=== PATIENT | female | born 1980 | race Caucasian/White ===

== ENCOUNTER 2023-12-23 18:47 | Outpatient (REF) | payer OTHER, SELFPAY ==
[2023-12-30 11:10] LABS: Age Gdln ACOG Testing Note (.); HPV Aptima Negative (Negative); IGP, Aptima HPV, rfx 16/18,45 Note (.)
== END 2023-12-23 18:48 | disposition home or self-care (01) ==
LOC: LAB 18:47
PROVIDERS: PCP Physician Assistant; Visit Provider Physician Assistant
DX: Z01.419 Encounter for gynecological examination (general) (routine) without abnormal findings (principal)
CPT/HCPCS: 87624; 88175

== ENCOUNTER 2024-12-27 15:14 | Outpatient (REF) | payer OTHER, SELFPAY ==
--- OUTSIDE RECORDS SUMMARY | 2024-12-27 15:20 | XMS_ITS | CCD ---
Author Organization [facility] Care Team Providers Care Television News Producer Name Role Phone Leo Navarrete MD Primary Care Provider [phone] LAYO, DR SORIA Attending Unavailable LIZZETTE, DR BAILEY Consulting Unavailable LIZZETTE, DR BAILEY Primary Care Unavailable LAYO, DR SORIA Admitting Unavailable LAYO, DR SORIA Attending Unavailable LAYO, DR SORIA Consulting Unavailable LIZZETTE, DR BAILEY Primary Care Unavailable LAYO, DR SORIA Admitting Unavailable LAYO, DR SORIA Attending Unavailable LAYO, DR SORIA Consulting Unavailable LIZZETTE, DR BAILEY Primary Care Unavailable LAYO, DR SORIA Admitting Unavailable AGUBOSIM, BILL Consulting Unavailable JEREMYKOOSEI ROMAN Consulting Unavailable LAYO, DR SORIA Admitting Unavailable LIZZETTE, DR BAILEY Primary Care Unavailable LAYO, DR SORIA Attending Unavailable LAYO, DR SORIA Attending Unavailable LAYO, DR SORIA Consulting Unavailable LIZZETTE, DR BAILEY Primary Care Unavailable LAYO, DR SOIRA Admitting Unavailable LIZZETTE, DR BAILEY Attending Unavailable LIZZETTE, DR BAILEY Consulting Unavailable LIZZETTE, DR BAILEY Primary Care Unavailable LIZZETTE, DR BAILEY Admitting Unavailable LAYO, DR SORIA Consulting Unavailable LAYO, DR SORIA Admitting Unavailable LIZZETTE, DR BAILEY Primary Care Unavailable LAYO, DR SORIA Attending Unavailable ZIEBER, DR LIVAN Baeza Consulting Unavailable Leo Navarrete MD Primary Care Provider Leo Navarrete MD Primary Care Provider Leo Navarrete MD Primary Care Provider Leo Navarrete MD Primary Care Provider Leo Navarrete MD Primary Care Provider LEO NAVARRETE Primary Care Unavailable LEO NAVARRETE Primary Care Unavailable FIDELINA COSBY Attending Unavailable FIDELINA COSBY Attending Unavailable FIDELINA COSBY Attending Unavailable PAZ LO Attending Unavailable FIDELINA COSBY Attending Unavailable Leo Navarrete MD Primary Care Provider [phone] Medications Current Medications Medication Drug Class(es) Dates Sig (Normalized) Sig (Original) acetaminophen 325 mg / HYDROcodone bitartrate 5 mg oral tablet (9 sources) Opioid Agonist take 2 tablets by mouth every six hours as needed HYDROcodone-acetami nophen (NORCO) 5-325 MG per tablet Take 2 tablets by mouth every 6 hours as needed. Active acetaminophen 325 mg / oxyCODONE hydrochloride 5 mg oral tablet (9 sources) Opioid Agonist take 1 tablet by mouth every four hours as needed oxyCODONE-acetamino phen (PERCOCET) 5-325 MG per tablet Take 1 tablet by mouth every 4 hours as needed. Active azithromycin 250 mg oral tablet (6 sources) Macrolide Antimicrobial Start: 10-18-2023 End: 12-27-2024 azithromycin (Zithromax) 250 MG tablet 10/18/2023 12/27/2024 Discontinued 24 hr buPROPion hydrochloride 300 mg extended release oral tablet (6 sources) Aminoketone Start: 08-10-2023 buPROPion XL (Wellbutrin XL) 300 MG 24 hr tablet 1 (one) time each day at the same time 08/10/2023 Active cephalexin 500 mg oral capsule (1 source) Cephalosporin Antibacterial Start: 09-27-2024 End: 10-07-2024 take 1 capsule by mouth three times daily cephALEXin (KEFLEX) 500 MG capsule Take 1 capsule by mouth 3 times daily for 10 days 30 capsule 09/27/2024 10/07/2024 Active citalopram 40 mg oral tablet (11 sources) Serotonin Reuptake Inhibitor take 1 tablet by mouth in the morning citalopram (CeleXA) 40 MG tablet Take 40 mg by mouth in the morning. Active dexamethasone 6 mg oral tablet (6 sources) Corticosteroid Start: 10-18-2023 dexAMETHasone (Decadron) 6 MG tablet 10/18/2023 Active diphenhydrAMINE hydrochloride 25 mg oral tablet (8 sources) Histamine-1 Receptor Antagonist take 1 tablet by mouth every six hours as needed diphenhydrAMINE (BENADRYL) 25 MG tablet Take 25 mg by mouth every 6 hours as needed for Itching Active Estradiol / Progesterone (2 sources) Progesterone, Estrogen Start: 12-27-2024 End: 03-27-2025 Estradiol-Progester one (Bijuva) 0.5-100 MG capsule Indications: Night sweat , Difficulty sleeping , Irregular periods/menstrual cycles , Other fatigue , Major depressive disorder with current active episode, unspecified depression episode severity, unspecified whether recurrent Take 0.5 mg by mouth Daily 90 capsule 3 12/27/2024 03/27/2025 Active hydrOXYzine hydrochloride 50 mg oral tablet (6 sources) Antihistamine Start: 08-10-2023 End: 12-27-2024 take 2 tablets by mouth every eight hours as needed hydrOXYzine HCl (Atarax) 50 MG tablet 2 tablet as needed Orally every 8 hours PRN 08/10/2023 12/27/2024 Discontinued lactulose 667 mg/ml oral solution (6 sources) Osmotic Laxative Start: 08-10-2023 End: 12-27-2024 lactulose 20 gram/30 mL oral solution 15 - 30 mL as needed Orally Once a day - up to bid for 30 days 08/10/2023 12/27/2024 Discontinued linaclotide 0.145 mg oral capsule (6 sources) Guanylate Cyclase-C Agonist Start: 12-01-2023 End: 12-27-2024 Linzess 145 MCG capsule 1 (one) time each day at the same time 12/01/2023 12/27/2024 Discontinued minocycline 50 mg oral capsule (9 sources) Tetracycline-class Drug take 1 capsule by mouth twice daily minocycline (MINOCIN;DYNACIN) 50 MG capsule Take 50 mg by mouth 2 times daily. Active naltrexone hydrochloride 50 mg oral tablet (6 sources) Opioid Antagonist Start: 08-10-2023 End: 12-27-2024 naltrexone (Depade) 50 MG tablet 1 (one) time each day at the same time 08/10/2023 12/27/2024 Discontinued PARoxetine hydrochloride 10 mg oral tablet (9 sources) Serotonin Reuptake Inhibitor take 1 tablet by mouth once daily in the morning PARoxetine (PAXIL) 10 MG tablet Take 10 mg by mouth every morning. Active spironolactone 100 mg oral tablet (10 sources) Aldosterone Antagonist Start: 12-01-2022 take 1 tablet by mouth in the morning, then take 1 tablet by mouth once daily spironolactone (Aldactone) 100 MG tablet Indications: Acne vulgaris Take 1 tablet (100 mg) by mouth in the morning. Take 1 tablet daily. 30 tablet 11 12/01/2022 Active Start: 09-21-2022 End: 12-23-2023 take 1 tablet by mouth in the morning, then take 1 tablet by mouth once daily spironolactone (Aldactone) 50 MG tablet Indications: Acne vulgaris Take 1 tablet (50 mg) by mouth in the morning. Tae 1 capsule daily. 30 tablet 11 09/21/2022 12/23/2023 Discontinued Completed/Discontinued Medications Medication Drug Class(es) Dates Sig (Normalized) Sig (Original) bacitracin 0.5 unt/mg / neomycin 0.0035 mg/mg / polymyxin b 10 unt/mg topical ointment (1 source) Aminoglycoside Antibacterial, Polymyxin-class Antibacterial Start: End: apply 1 dose topically once Topical, ONCE, On Wed09/27/24 at 1815, For 1 dose onabotulinumtoxina 100 unt injection (4 sources) Acetylcholine Release Inhibitor Start: End: onabotulinumtoxinA (Botox) injection 26 Units Start: 12-26-2024 End: 12-26-2024 26 Units, Injection, Once, O n 12/26/24 at 1000, For 1 dose, Charging context for this clinic-administered medication: Fee-Editable/Self Pay Start: 08-24-2024 End: 08-24-2024 onabotulinumtoxinA (Botox) i njection 26 Units Start: 08-24-2024 End: 08-24-2024 inject 26 [IU] by intramuscular injection once 26 Units, Intramuscular, Once, On Wed08/24/24 at 1330, For 1 dose, Charging context for this clinic-administered medication: Fee-Editable/Self Pay phenazopyridine hydrochlorid e 200 mg delayed release oral tablet (4 sources) Start: 09-04-2022 End: 12-23-2023 phenazopyridine (Pyridium) 2 00 MG tablet every 8 (eight) hours. 09/04/2022 12/23/2023 Discontinued Problems Active Problems Problem Classification Problem Date Documented Date Episodic/Chronic Contraceptive and procreative management (1 source) Tubal ligation status; Translations: [TUBAL LIGATION STATUS] Onset: 08-18-2021 Episodic Endometriosis (6 sources) Endometriosis (clinical); Translations: [Endometriosis, unspecified] Onset: 08-30-2012 02-04-2024 Chronic Immunizations and screening for infectious disease (2 sources) Encounter for screening for human papillomavirus (HPV); Translations: [Positive measurement finding] Onset: 08-28-2021 Episodic Malaise and fatigue (7 sources) Fatigue; Translations: [Other fatigue] Onset: 03-13-2024 03-13-2024 Episodic Menstrual disorders (13 sources) Excessive and frequent menstruation with regular cycle; Translations: [Excessive and frequent menstruation with irregular cycle] Onset: 08-06-2021 Chronic Mood disorders (2 sources) Major depressive disorder; Translations: [Major depressive disorder, single episode, unspecified] 12-27-2024 Chronic Open wounds of extremities (2 sources) Laceration of left wrist; Translations: [Laceration without foreign body of left wrist, subsequent encounter] Onset: 09-27-2024 09-27-2024 Episodic Other screening for suspected conditions (not mental disorders or infectious disease) (9 sources) Patient encounter status; Translations: [Encounter for screening mammogram for malignant neoplasm of breast] Onset: 08-25-2021 Episodic Other skin disorders (5 sources) Wrinkled face; Translations: [Other specified disorders of the skin and subcutaneous tissue] 02-04-2024 Episodic Other skin disorders (2 sources) Night sweats; Translations: [Generalized hyperhidrosis] 12-27-2024 Episodic Ovarian cyst (1 source) Unspecified ovarian cyst, left side; Translations: [UNSPECIFIED OVARIAN CYST LEFT SIDE] Onset: 07-04-2021 Episodic Residual codes; unclassified (5 sources) Insomnia; Translations: [Other insomnia] Onset: 03-13-2024 03-13-2024 Chronic Residual codes; unclassified (2 sources) Difficulty sleeping ; Translations: [Sleep disorder, unspecified] 12-27-2024 Episodic Screening and history of mental health and substance abuse codes (1 source) Personal history of nicotine dependence; Translations: [PERSONAL HISTORY OF NICOTINE DEPEND] Onset: 08-18-2021 Episodic Unclassified (3 sources) CONTACT W/AND (SUSP) EXPOS COVID-19; Translations: [CONTACT W/AND (SUSP) EXPOS COVID-19] Onset: 04-08-2021 Viral infection (1 source) COVID-19; Translations: [COVID-19] Onset: 04-08-2021 Past or Other Problems Problem Classification Problem Date Documented Da te Episodic/Chronic Acute bronchitis (1 source) Acute bronchitis, unspecified; Translations: [ACUTE BRONCHITIS UNSPECIFIED] Onset: 04-08-2021 Episodic Other gastrointestinal disorders (6 sources) Constipation; Translations: [Constipation, unspecified] Onset: 02-04-2024 02-04-2024 Episodic Other skin disorders (6 sources) Acne vulgaris; Translations: [Acne vulgaris] Onset: 02-04-2024 02-04-2024 Episodic Unclassified (1 source) CONTACT W/AND (SUSP) EXPOS COVID-19; Translations: [CONTACT W/AND (SUSP) EXPOS COVID-19] Onset: 04-01-2021 Results Test Name Value Interpretation Reference Range Facility IGP,APTIMA HPV,AGE GDLNon AGE GDLN ACOG TESTING Note . [facility] Comment on above: TESTS RESULT FLAG U NITS REF RANGE LAB Clinician Provided Cytology Information Source.............Cervix;Endocervix No. of containers..01 ThinPrep Vial Age Algo ACOG Mirtha... 30-65 01 FLAG LEGEND: L-Low Normal,H-High Normal,LL-Alert Low,HH-Alert High <-Panic Low,>-Panic High,A-Abnormal,AA-Critical Abnormal Performed at: 01 =[address] [id number] Sammi Rodríguez MD, HPV APTIMA Negative Negative [facility] Comment on above: This nucleic acid am plification test detects fourteen high- risk HPV types (16,18,31,33,35,39,45,51,52,56,58,59,66,68) without differentiation. Performed at: =[address] [id number] Needle Grader: Sammi Rodríguez MD, Phone: [phone] Performed at: [address] [id number] Needle Grader: Sammi Rodríguez MD, Phone: [phone] IGP, APTIMA HPV, RFX 16/18,45 Note . [facility] Comment on above: TESTS RESULT FLAG UN ITS REF RANGE LAB DIAGNOSIS: 02 NEGATIVE FOR INTRAEPITHELIAL LESION OR MALIGNANCY. THIS SPECIMEN WAS RESCREENED PART OF OUR AUTOMOBILE TECHNICIAN PROGRAM. Specimen adequacy: 02 Satisfactory for evaluation. No endocervical component is identified. Performed by: 02 Teo Naylor Pad Extraction Tender (ASCP) QC reviewed by: 02 Nikki Logan Pad Extraction Tender . 02 Note: Note 02 The Pap smear is a screening test designed to aid in the detection of premalignant and malignant conditions of the uterine cervix. It is not a diagnostic procedure and should not be used as the sole means of detecting cervical cancer. Both false-positive and false-negative reports do occur. Test Methodology: Note 02 This liquid based ThinPrep(R) pap test was screened with the use of an image guided system. HPV Genotype Reflex Note 02 Criteria not met, HPV Genotype not performed. FLAG LEGEND: L-Low Normal,H-High Normal,LL-Alert Low,HH-Alert High <-Panic Low,>-Panic High,A-Abnormal,AA-Critical Abnormal Performed at: 02 [facility] [address] [id number] Sammi Rodríguez MD, BRUSH-SPATULA CERVIX ENDOCERVIX [facility] Healthcar e COVID-19, Rapidon 03-21-2023 SARS-CoV-2 (COVID-19) RdRp gene ESTELA+probe Ql (Resp) Not detected Not Detected [facility] Comment on above: Rapid NAAT: The specimen is NEGATIVE for SARS-CoV-2, the novel coronavirus associated with COVID-19. The ID NOW COVID-19 assay is designed to detect the virus that causes COVID-19 in patients with signs and symptoms of infection who are suspected of COVID-19. An individual without symptoms of COVID-19 and who is not shedding SARS-CoV-2 virus would expect to have a negative (not detected) result in this assay. Negative results should be treated as presumptive and, if inconsistent with clinical signs and symptoms or necessary for patient management, should be tested with an alternative molecular assay. Negative results do not preclude SARS-CoV-2 infection and should not be used as the sole basis for patient management decisions. Fact sheet for Healthcare Providers: https://www.fda.gov/media/860259/download Fact sheet for Patients: https://www.fda.gov/media/009093/download Methodology: Isothermal Nucleic Acid Amplification Specimen Description .[facility] Rapid influenza A/B antigens on 03-21-2023 FLUAV Ag Ql (Unsp spec) Negative NEGATIVE [facility] Comment on above: for Influenza A Anti gen FLUBV Ag Ql (Unsp spec) Negative NEGATIVE [facility] Comment on above: for Influenza B Anti gen. [facility] DIGITAL SCREEN SELF REFERRAL W OR WO CAD BILATERALon 11-02-2022 No mammographic evidence of malignancy BIRADS: BIRADS - CATEGORY 1 Negative. Normal interval follow-up is recommended in 12 months. OVERALL ASSESSMENT - NEGATIVE A letter of notification will be sent to the patient regarding the results. The [place] [employer] recommends annual mammograms for women 40 years and older. [facility] EXAMINATION: SCREENING DIGITAL BILATERAL MAMMOGRAM WITH TOMOSYNTHESIS, 11/02/2022 TECHNIQUE: Screening mammography of the bilateral breasts was performed with tomosynthesis. 2D standard and 3D tomosynthesis combination imaging performed through both breasts in the MLO and CC projection. Computer aided detection was utilized in the interpretation of this exam. COMPARISON: August 29, 2021 and August 23, 2020 HISTORY: Screening. FINDINGS: The breasts are heterogeneously dense which can obscure small masses. There is no dominant mass architectural distortion or concerning grouping of microcalcification in either breast. [facility] Radiology Study observation (narrative) [facility] DIGITAL SCREEN SELF REFERRAL W OR WO CAD BILATERALOrdered By: Mahad Steele on 11-02-2022 [facility] Work Phone: XR CHEST (2 VW)on 10-24-2021 No evidence of cardiopulmonary disease. [facility] EXAMINATION: TWO XRAY VIEWS OF THE CHEST 10/24/2021 4:09 pm COMPARISON: Chest x-ray dated 14 Aug 2016 HISTORY: ORDERING SYSTEM PROVIDED HISTORY: Positive TB test TECHNOLOGIST PROVIDED HISTORY: past positive TB Test FINDINGS: No airspace infiltrates. No pneumothorax or pleural effusion. Normal cardiomediastinal silhouette [facility] Joesph Leavitt P - 10/24/2021 EXAMINATION: TWO XRAY VIEWS OF THE CHEST 10/24/2021 4:09 pm COMPARISON: Chest x-ray dated 14 Aug 2016 HISTORY: ORDERING SYSTEM PROVIDED HISTORY: Positive TB test TECHNOLOGIST PROVIDED HISTORY: past positive TB Test FINDINGS: No airspace infiltrates. No pneumothorax or pleural effusion. Normal cardiomediastinal silhouette IMPRESSION: No evidence of cardiopulmonary disease. [facility] Work Phone: Radiology Study observation (narrative) [employer] Phone: XR CHEST (2 VW)Ordered By: Kenzie Leavitt on 10-24-2021 [facility] Work Phone: Hepatitis B Surface Antibody on 10-23-2021 HBV surface Ab (S) [Titer] >1000.00 High NINF [facility] Comment on above: REFERENCE RANGE: <10.0 NON-REACTIVE/NOT IMMUNE >=10.0 REACTIVE/IMMUNE The presence of Anti-HBs usually indicates recovery from acute or chronic HBV infection or acquired immunity from HBV vaccination. Positive results (quantitative levels of equal to or greater than 10.0 mIU/mL) indicate an adequate immunity from previous infection, vaccination or immune globulin adminstration. Anti-HBc would help define positivity due to Hepatitis B infection. Interpretation and review of laboratory results Abnormal [facility] [employer] Rubella antibody, IgGon 10-04 Rubella virus IgG Ql (S) 13.7 IU/mL [facility] [employer] Comment on above: REFERENCE RANGE: <5.0 NON-REACTIVE (non-immune) 5.0 TO 9.9 EQUIVOCAL >=10.0 REACTIVE (immune) [facility] M DIGITAL SCREEN ALBERTO Boogie 08-29-2021 No mammographic evidence of malignancy BIRADS: BIRADS - CATEGORY 1 Negative. Normal interval follow-up is recommended in 12 months. OVERALL ASSESSMENT - NEGATIVE A letter of notification will be sent to the patient regarding the results. The [place] [employer] recommends annual mammograms for women 40 years and older[address] [facility] EXAMINATION: SCREENING DIGITAL BILATERAL MAMMOGRAM WITH TOMOSYNTHESIS, 08/29/2021 TECHNIQUE: Screening mammography was performed with tomosynthesis including MLO and CC views of the bilateral breasts. Computer aided detection was used for the interpretation of this exam. COMPARISON: August 23, 2020 and May 27, 2018 HISTORY: Screening. FINDINGS: The breasts are heterogeneously dense which can obscure small masses. There is no dominant mass architectural distortion or concerning grouping of microcalcification in either breast. [facility] Radiology Study observation (narrative) [employer] Phone: [facility] M DIGITAL SCREEN BILA TERALOrdered By: Mahad Steele on 08-29-2021 [facility]: PAP ACOG PANEL 2: 30 to 65on 08-29-2021 . . Normal [facility] Comment on above: Result Comment: Perf ormed at: BA Performed By: #### [id number] #### [facility] [address] [place] [address] Dr. Rhoda Bobby Age Gdln ACOG Testing 30-65 Normal [facility] Comment on above: Performed By: #### [id number] #### [facility] [address] [place] [address] Dr. Rhoda Bobby DIAGNOSIS: Comment Normal [facility] Comment on above: Result Comment: NEGA TIVE FOR INTRAEPITHELIAL LESION OR MALIGNANCY. THIS SPECIMEN WAS RESCREENED PART OF OUR AUTOMOBILE TECHNICIAN PROGRAM. Performed at: BA Performed By: #### [id number] #### [facility] [address] [place] [address] Dr. Rhoda Bobby HPV Aptima Negative Normal Negative [facility] Comment on above: Result Comment: This nucleic acid amplification test detects fourteen high-risk HPV types (16,18,31,33,35,39,45,51,52,56,58,59,66,68) without differentiation. Performed at: =G Performed By: #### [id number] #### [facility] [address] [place] [address] Dr. Rhoda Bobby Methodology: Comment Normal [facility] Comment on above: Result Comment: This liquid based ThinPrep(R) pap test was screened with the use of an image guided system. Performed at: WB Performed By: #### [id number] #### [facility] [address] [place] [address] Dr. Rhoda Bobby Note: Comment Normal [facility] Comment on above: Result Comment: The Pap smear is a screening test designed to aid in the detection of premalignant and malignant conditions of the uterine cervix. It is not a diagnostic procedure and should not be used as the sole means of detecting cervical cancer. Both false-positive and false-negative reports do occur. . Performed at: WB Performed By: #### [id number] #### [facility] [address] [place] [address] Dr. Rhoda Bobby Performed by: Comment Normal [facility] Comment on above: Result Comment: Adrien Rosales, Pad Extraction Tender (ASCP) Performed at: BA Performed By: #### [id number] #### [facility] [address] [place] [address] Dr. Rhoda Bobby QC reviewed by: Comment Normal [facility] Comment on above: Result Comment: Dai Valdez, Pad Extraction Tender (ASCP) Performed at: BA Performed By: #### [id number] #### [facility] [address] [place] [address] Dr. Rhoda Bobby Specimen adequacy: Comment Normal [facility] Comment on above: Result Comment: Sati sfactory for evaluation. Endocervical and/or squamous metaplastic cells (endocervical component) are present. Performed at: BA Performed By: #### [id number] #### [facility] [address] [place] [address] Dr. Rhoda Bobby CBC AUTO DIFFon 08-15-2021 BASO # 0.1 103/ul Normal 0.0-0.1 [facility] Comment on above: Performed By: #### C BC #### [facility] [address] [place] [address] Dr. Rhoda Bobby Basophils/100 WBC (Bld) 1.2 % Normal 0.2-2.0 [facility] Comment on above: Performed By: #### C BC #### [facility] [address] [place] [address] Dr. Rhoda Bobby EO # 0.3 103/ul Normal 0.0-0.7 [facility] Comment on above: Performed By: #### C BC #### [facility] [address] [place] [address] Dr. Rhoda Bobby Eosinophils/100 WBC (Bld) 4.3 % Normal 0.9-7.0 [facility] Comment on above: Performed By: #### C BC #### [facility] [address] [place] [address] Dr. Rhoda Bobby Erythrocyte distribution width (RBC) [Ratio] 12.1 % Normal 11.0-15.0 [facility] Comment on above: Performed By: #### C BC #### [facility] [address] [place] [address] Dr. Rhoda Bobby Hematocrit (Bld) [Volume fraction] 38.4 % Normal 36.0-48.0 [facility] Comment on above: Performed By: #### C BC #### [facility] [address] [place] [address] Dr. Rhoda Bobby Hemoglobin (Bld) [Mass/Vol] 12.9 g/dL Normal 12.0-16.0 [facility] Comment on above: Performed By: #### C BC #### [facility] [address] [place] [address] Dr. Rhoda Bobby IG # 0.01 10e3/ul Normal 0.00-0.03 [facility] Comment on above: Performed By: #### C BC #### [facility] [address] [place] [address] Dr. Rhoda Bobby IG % 0.2 % Normal 0.0-0.5 [facility] Comment on above: Performed By: #### C BC #### [facility] [address] [place] [address] Dr. Rhoda Bobby LYMPH # 1.2 103/ul Normal 1.2-3.8 [facility] Comment on above: Performed By: #### C BC #### [facility] [address] [place] [address] Dr. Rhoda Bobby Lymphocytes/100 WBC (Bld) 19.9 % Critically low 20.5-60.0 [facility] Comment on above: Performed By: #### C BC #### [facility] [address] [place] [address] Dr. Rhoda Bobby MANUAL DIFF REQ NO Normal [facility] Comment on above: Performed By: #### C BC #### [facility] [address] [place] [address] Dr. Rhoda Bobby MCH (RBC) [Entitic mass] 31.2 pg Normal 26.7-34.0 [facility] Comment on above: Performed By: #### C BC #### [facility] [address] [place] [address] Dr. Rhoda Bobby MCHC (RBC) [Mass/Vol] 33.6 g/dL Normal 29.9-35.2 [facility] Comment on above: Performed By: #### C BC #### [facility] [address] [place] [address] Dr. Rhoda Bobby MCV (RBC) [Entitic vol] 92.8 fL Normal 81.0-99.0 [facility] Comment on above: Performed By: #### C BC #### [facility] [address] [place] [address] Dr. Rhoda Bobby MONO # 0.7 103/ul Normal 0.3-0.8 [facility] Comment on above: Performed By: #### C BC #### [facility] [address] [place] [address] Dr. Rhoda Bobby Monocytes/100 WBC (Bld) 11.5 % Normal 1.7-12.0 [facility] Comment on above: Performed By: #### C BC #### [facility] [address] [place] [address] Dr. Rhoda Bobby NEUT # 3.8 103/ul Normal 1.4-6.5 [facility] Comment on above: Performed By: #### C BC #### [facility] [address] [place] [address] Dr. Rhoda Bobby Neutrophils/100 WBC (Bld) 62.9 % Normal 43.0-75.0 [facility] Comment on above: Performed By: #### C BC #### [facility] [address] [address] [address] Rhoda Bobby Platelet mean volume (Bld) [Entitic vol] 9.3 fL Critically low 9.5-13.5 [facility] Comment on above: Performed By: #### C BC #### [facility] [address] [address] [address] Rhoda Bobby PLT 226 103/ul Normal 150-450 [facility] Comment on above: Performed By: #### C BC #### [facility] [address] [address] [address] Rhoda Bobby RBC 4.14 106/ul Critically low 4.20-5.40 [facility] Comment on above: Performed By: #### C BC #### [facility] [address] [place] [address] Dr. Rhoda Bobby WBC 6.1 103/ul Normal 4.0-11.0 [facility] Comment on above: Performed By: #### C BC #### [facility] [address] [place] [address] Dr. Rhoda Bobby PREG QUANT HCGon 08-15-2021 HCG QUANT <1 Normal [facility] Comment on above: Performed By: #### P REGQNT #### [facility] [address] [place] [address] Dr. Rhoda Bobby HCG RANGE SEE BELOW Normal [facility] Comment on above: Result Comment: 5-50 0-1 WEEK 40-300 1-2 WEEKS 100-1,000 2-3 WEEKS 500-6,000 3-4 WEEKS 5,000-200,000 1-2 MONTHS 10,000-100,000 2-3 MONTHS 3,000-50,000 2ND TRIMESTER 1,000-50,000 3RD TRIMESTER Performed By: #### P REGQNT #### [facility] [address] [place] [address] Dr. Rhoda Bobby [facility]03 SARS-CoV-2 (COVID-19) RNA ESTELA+probe Ql (Unsp spec) Not detected Normal NOT DETECTED [facility] Comment on above: Result Comment: This test is not yet approved or cleared by the [place] FDA. When there are no FDA-approved or cleared tests available, and other criteria are met, FDA can make tests available under an emergency access mechanism called an Emergency Use Authorization (EUA). The EUA for this test is supported by the [place] of Health and Human Service's (HHS's) declaration that circumstances exist to justify the emergency use of in vitro diagnostics for the detection and/or diagnosis of the virus that causes COVID-19. This EUA will remain in effect (meaning this test can be used) for the duration of the COVID-19 declaration justifying emergency of IVDs, unless it is terminated or revoked by FDA (after which the test may no longer be used). When diagnostic testing is negative, the possibility of a false negative should be considered in the context of a patient's recent exposures and the presence of clinical signs and symptoms consistent with SARS-CoV-2. Performed By: #### C [facility] #### [facility] [address] [place] [address] Dr. Rhoda Ta 07-03-2021 aPTT Coag (Bld) [Time] 29.8 s [facility] [employer] [facility] Comment on above: IV Heparin Therapy Range: 62.0-94.0 [facility] CBC with Auto Differentialon 07-03-2021 Absolute Eos # 0.22 [facility] th Absolute Immature Granulocyte 0.04 [facility] Absolute Lymph # 1.[address] [facility] alth Absolute Hawkins # 0.[address] [facility] Basophils (Bld) [#/Vol] 0.07 10*3/uL [facility] Basophils/100 WBC (Bld) 1 % 0 - 2 % [employer] [facility] Eosinophils/100 WBC (Bld) 2 % 1 - 4 % [facility] Hematocrit (Bld) [Volume fraction] 40.1 % 36.3 - 47.1 % [facility] Hemoglobin.gastroint estinal spec 1 Ql (Stl) 12.9 g/dL 11.9 - 15.1 g/dL [facility] Immature granulocytes/100 WBC (Bld) 0 % 0 [facility] Interpretation and review of laboratory results Abnormal [facility] Lymphocytes/100 WBC (Bld) 16 % Low 24 - 43 % [facility] MCH (RBC) [Entitic mass] 31.4 pg 25.2 - 33.5 pg [facility] MCHC (RBC) [Mass/Vol] 32.2 g/dL 28.4 - 34.8 g/dL [facility] MCV (RBC) [Entitic vol] 97.6 fL 82.6 - 102.9 fL [facility] Monocytes/100 WBC (Bld) 9 % 3 - 12 % [facility] NRBC Automated 0.0 0.0 per 100 WBC [facility] Platelet distribution width (Bld) [Ratio] 12.4 % 11.8 - 14.4 % [facility] Platelet mean volume (Bld) [Entitic vol] 9.4 fL 8.1 - 13.5 fL [facility] Platelets (Bld) [#/Vol] 232 10*3/uL [facility] RBC (Bld) [#/Vol] 4.11 10*6/uL 3.95 - 5.1 1 m/uL [facility] Segmented neutrophils/100 WBC (Bld) 72 % High 36 - 65 % [facility] Segs Absolute 7.39 [facility] WBC (Bld) [#/Vol] 10.3 10*3/uL [facility] HCG, Quantitative, on 07-03-2021 hCG Quant <1 <5 mIU/mL [facility] Comment on above: Non-preg premeno <=5 Postmeno <=8 Male <=3 If HCG results do not concur with clinical observations, additional testing to confirm results is recommended. Elevated results not associated with may be found in patients with other diseases such as tumors of the germ cells (testis, ovaries, etc.), bladder, pancreas, stomach, lungs, and liver. No Panel Informationon 07-03 [facility] Protime-INRon 07-03-2021 INR Coag (Bld) [Relative time] 1.1 {INR} [facility] Comment on above: Non-therapeutic Range: INR = 0.9-1.2 Therapeutic Range: Moderate Anticoagulant Intensity: INR = 2.0-3.0 High Anticoagulant Intensity: INR = 2.5-3.5 PT Coag (PPP) [Time] 13.7 s [facility] TSHon 07-03-2021 TSH Qn 1.04 m[IU]/L [facility] US PELVIS AND TRANSVAGon US PELVIS AND TRANSVAG EXAMINATION: US PELVIS AND TRANSVAG HISTORY: Excessive and frequent menstruation COMPARISON: No relevant comparison available. TECHNIQUE: Transabdominal and transvaginal sonographic examination. FINDINGS: UTERUS: Normal size and appearance of the uterus. Slightly prominent left adnexal vessels. Uterus size: 10.8 x 3.8 x 5.1 cm ENDOMETRIUM: Normal homogeneous appearance. Endometrial thickness: 5 mm RIGHT OVARY: Normal size and appearance. Duplex Doppler demonstrates normal waveform and flow; resistive index 0.55. Ovary size: 2.0 x 2.9 x 1.4 cm LEFT OVARY: Contains several benign-appearing cysts, largest is 2.6 cm. Duplex Doppler demonstrates normal waveform and flow; resistive index 0.6. Ovary size: 6.5 x 2.5 x 3.2 cm CUL-DE-SAC: Unremarkable. No significant free fluid. BLADDER: Unremarkable. OTHER: None. IMPRESSION: 1. Normal appearance of uterus and endometrium. 2. Several benign-appearing cysts within left ovary of doubtful clinical significance. Electronically authenticated by: LIVAN JORDAN Date: 2021-07-03 07:31 Normal [facility] Covid-19 PCR ([facility])on 03-06 SARS-CoV-2 (COVID-19) RNA ESTELA+probe Ql (Unsp spec) Detected Critically abnormal NOT DETECTED [facility] Comment on above: Result Comment: This test is not yet approved or cleared by the [place] FDA. When there are no FDA-approved or cleared tests available, and other criteria are met, FDA can make tests available under an emergency access mechanism called an Emergency Use Authorization (EUA). The EUA for this test is supported by the [place] of Health and Human Service's (HHS's) declaration that circumstances exist to justify the emergency use of in vitro diagnostics for the detection and/or diagnosis of the virus that causes COVID-19. This EUA will remain in effect (meaning this test can be used) for the duration of the COVID-19 declaration justifying emergency of IVDs, unless it is terminated or revoked by FDA (after which the test may no longer be used). Performed By: #### C [facility] #### [facility] [address] [place] [address] Dr. Rhoda Bobby INFLUENZA A AND B [facility] 04-01 [facility] SEE BELOW Normal [facility] Comment on above: Result Comment: Nega tive for Flu A protein angiten. Infection due to Flu A cannot be ruled out. Flu A angiten in the sample may be below the detection limit of the test. Performed By: #### I NFLUAB #### [facility] [address] [place] [address] Dr. Rhoda Bobby [facility] SEE BELOW Normal [facility] Comment on above: Result Comment: Nega tive for Flu B protein antigen. Infection due to Flu B cannot be ruled out. Flu B antigen in the sample may be below the detection limit of the test. Performed By: #### I NFLUAB #### [facility] [address] [place] [address] Dr. Rhoda Bobby INFLUENZA A AG Negative Normal NEGATIVE SEE COMMENT [facility] Comment on above: Performed By: #### I NFLUAB #### [facility] [address] [place] [address] Dr. Rhoda Bobby INFLUENZA B AG Negative Normal NEGATIVE SEE COMMENT [facility] Comment on above: Performed By: #### I NFLUAB #### [facility] [address] [place] [address] Dr. Rhoda Bobby INTERNAL CONTROLS Within Normal Limits Normal Within Normal Limits [facility] Comment on above: Performed By: #### I NFLUAB #### [facility] [address] [place] [address] Dr. Rhoda Bobby CNOVon 08-29-2020 CNOV Office Visit ([facility]) ---- AC MERCER ([id number]) 1980 F Date Time Provider Department 08/29/20 1:10 PM TITO ELIAS [facility] During your visit today, we recorded the following information about you: Pulse Blood pressure Weight Height 81/minute 121/86 63.5 kg 1.753 m Last Period 08/08/20 Tito Elias MD 08/29/2020 2:34 PM Signed SUBJECTIVE: Ac Mercer is a 40 year old female Patient presents with: Vaginal Problem Pt is here for 2nd opinion She gest frequent BV Gets odor after intercourse. She tried all Rx for BV. CURRENT MEDICATIONS: Current Outpatient Medications Medication Sig - azithromycin (ZITHROMAX) 250 mg tablet - spironolactone (ALDACTONE) 50 mg tablet - nystatin-triamcinol one ointment Apply 1 application to affected area twice daily. - PARoxetine (PAXIL) 10 mg tablet Take 10 mg by mouth once daily. - multivitamin tablet Take 1 tablet by mouth once daily. - CALCIUM CARBONATE (CALCIUM 500 ORAL) Take 600 mg by mouth once daily. - zinc once daily. - ERGOCALCIFEROL, VITAMIN D2, (VITAMIN D ORAL) Take by mouth once daily. No current facility-administer ed medications for this visit. Reviewed: PAST SURGICAL HISTORY Procedure Laterality Date - DEL W/ ANTE/POST CARE 2006 [place] - LAPAROSCOPY DIAGNOSTIC 08/07/2010 left endometrioma drained - L hydrosalpinx seen PAST MEDICAL HISTORY Diagnosis Date - Anxiety - Endometriosis Diagnosed in 2010 during laparoscopy - Left ovarian cyst Social History Tobacco Use - Smoking status: Former Smoker Types: Cigarettes - Smokeless tobacco: Never Used - Tobacco comment: Has not had a cig in 2 mo Substance Use Topics - Alcohol use: Yes Comment: Social occasions - Drug use: No Patient has no known allergies. REVIEW OF SYSTEMS:GENERAL: No weight loss, malaise or fevers HEENT: Negative for frequent or significant headaches, No changes in hearing or vision, no nose bleeds or other nasal problems NECK: Negative for lumps, goiter, pain and significant neck swelling RESPIRATORY: Negative for cough, hemoptysis, wheezing, COPD, dyspnea or shortness of breath CARDIOVASCULAR: Negative for chest pain, leg swelling, hypertension, CHF or palpitations GI: No nausea, vomiting, or diarrhea PHYSICAL EXAMINATION: BP 121/86 Pulse 81 Ht 5' 9 (1.75m) Wt 140 lb (63.5kg) LMP 08/08/2020 BMI 20.67 kg/(m2). GENERAL APPEARANCE: pleasant, well developed, well nourished, white female in no apparent distress NECK: Full range of motion, no adenopathy, thyroid normal, no goiter and lymphnodes normal, no lymphadenopathy ABDOMEN: Soft, non-tender, no hernia and No organmegaly PELVIC: vulva/vagina no lesions or discharge, cervix no lesions, discharge, or motion tenderness, uterus is anteverted, adnexa no palpable masses ASSESSMENT/PLAN: 1. Vaginal odor - ICD9: 625.8, ICD10: N89.8 Counseled in length Explained normal miracle Offered her to try condoms for a while or see [employer] ID She wants to think about it and let me know. - VAGINAL PATHOGENS DNA PROBES Tito Elias MD Referring Provider: SELF [[id number]] Allergies As of Date: 08/29/2020 (No Known Allergies) Date Reviewed: 08/29/2020 Reviewed by: Starla Méndez Ma - Fully Assessed Reason for Visit: Vaginal Problem [117] Primary Visit Diagnosis:Vaginal odor [N89.8] Order(s):VAGINAL PATHOGENS DNA PROBES [SQVAGDNA] Order #: [id number] Prescriptions as of 08/29/2020 Sig: AZITHROMYCIN 250 MG TABLET SPIRONOLACTONE 50 MG TABLET NYSTATIN-TRIAMCINOL ONE 100,00* Apply 1 application to affect* * PAROXETINE 10 MG TABLET Take 10 mg by mouth once bryan* * MULTIVITAMIN TABLET Take 1 tablet by mouth once d* * CALCIUM 500 ORAL Take 600 mg by mouth once parveen* * ZINC-FOR TPN once daily. * VITAMIN D2 ORAL Take by mouth once daily. Problem List As Of Date 08/29/2020 Noted Resolved Endometriosis [N80.9] 08/30/2012 Encounter Status:Closed by TITO ELIAS on 08/29/20 Normal [facility] Vag Pathogens DNAon 08-30-19 Emma sp DNA Probe Negative Normal Negativ e for Emma species by DNA Probe [facility] Comment on above: Performed By: #### V AGDNA #### [id number] Gricelda vag DNA Probe Negative Normal Negative for Gardnerella vaginalis by DNA Probe [facility] Comment on above: Performed By: #### V AGDNA #### [facility] [address] [place], [place] [address] Trich vag DNA Probe Negative Normal Negative for Trichomonas vaginalis by DNA Probe [facility] Comment on above: Performed By: #### V AGDNA #### [facility] [address] [place], [place] [address] ESPERANZA JUAN M DIGITAL SCREEN BILA TERALOrdered By: Yang Jimenez on 08-23-2020 No evidence of malignancy. Advise annual screening mammography. BREAST DENSITY SUMMARY C: The breasts are heterogeneously dense which may obscure small masses. BI-RADS 1 BIRADS: BIRADS - CATEGORY 1 Negative, no evidence of malignancy in either breast. OVERALL ASSESSMENT - NEGATIVE A letter of notification will be sent to the patient regarding the results. RECOMMENDATION: Routine bilateral annual screening mammography is recommended. Follow-up screening mammogram in 1 year is advised. Design A Phone: EXAMINATION: SCREENING DIGITAL BILATERAL MAMMOGRAM WITH TOMOSYNTHESIS, 08/23/2020 TECHNIQUE: Screening mammography was performed with tomosynthesis including MLO and CC views of the bilateral breasts. Computer aided detection was used for the interpretation of this exam. COMPARISON: 27 May 2018 HISTORY: Screening. Positive family history of breast cancer; paternal grandmother diagnosed with breast cancer at age 70. 6 year history of oral contraceptive usage. Negative history of hormonal replacement therapy. No prior breast interventions. FINDINGS: The breasts are heterogeneously dense which can obscure small masses. No skin thickening, nipple contour changes, malignant type microcalcifications , areas of architectural distortion, or significant interval changes are noted. Design A Phone: Mookie, pn Incoming Radiant Results From [employer] - 08/23/2020 5:47 PM EDT EXAMINATION: SCREENING DIGITAL BILATERAL MAMMOGRAM WITH TOMOSYNTHESIS, 08/23/2020 TECHNIQUE: Screening mammography was performed with tomosynthesis including MLO and CC views of the bilateral breasts. Computer aided detection was used for the interpretation of this exam. COMPARISON: 27 May 2018 HISTORY: Screening. Positive family history of breast cancer; paternal grandmother diagnosed with breast cancer at age 70. 6 year history of oral contraceptive usage. Negative history of hormonal replacement therapy. No prior breast interventions. FINDINGS: The breasts are heterogeneously dense which can obscure small masses. No skin thickening, nipple contour changes, malignant type microcalcifications , areas of architectural distortion, or significant interval changes are noted. IMPRESSION: No evidence of malignancy. Advise annual screening mammography. BREAST DENSITY SUMMARY C: The breasts are heterogeneously dense which may obscure small masses. BI-RADS 1 BIRADS: BIRADS - CATEGORY 1 Negative, no evidence of malignancy in either breast. OVERALL ASSESSMENT - NEGATIVE A letter of notification will be sent to the patient regarding the results. RECOMMENDATION: Routine bilateral annual screening mammography is recommended. Follow-up screening mammogram in 1 year is advised. [facility] Work Phone: [facility] Work Phone: Vital Signs Date Time Vital Sign Value Performing Clinician Facility 12-27-2024 09:01-0400 Body mass index (BMI) [Ratio] 22.24 kg/m2 Paz BRANDON Work Phone: [facility] 12-27-2024 09:01-0400 Body weight 70.31 kg Paz BRANDON Work Phone: [facility] 12-27-2024 09:01-0400 Diastolic blood pressure 84 mm[Hg] Paz BRANDON Work Phone: [facility] 12-27-2024 09:01-0400 Systolic blood pressure 108 mm[Hg] Paz BRANDON Work Phone: [facility] 09-27-2024 18:20-0400 Body temperature 98.6 [degF] Leo Navarrete MD Work Phone: [facility] [employer] [facility] [employer] 09-27-2024 18:20-0400 Diastolic blood pressure 82 mm[Hg] Leo Navarrete MD Work Phone: [facility] [employer] 09-27-2024 18:20-0400 Heart rate 98 /min Leo Navarrete MD Work Phone: [facility] 09-27-2024 18:20-0400 Respiratory rate 18 /min Leo Navarrete MD Work Phone: [facility] 09-27-2024 18:20-0400 SaO2% (BldA) [Mass fraction] 98 % Leo Navarrete MD Work Phone: [facility] 09-27-2024 18:20-0400 Systolic blood pressure 142 mm[Hg] Leo Navarrete MD Work Phone: [facility] 12-23-2023 14:08-0400 Body height 177.8 cm Paz BRANDON Work Phone: [facility] 12-23-2023 14:08-0400 Body mass index (BMI) [Ratio] 22.1 kg/m2 Paz Lo PA Work Phone: [facility] 12-23-2023 14:08-0400 Body weight 69.85 kg Paz Lo PA Work Phone: [facility] 12-23-2023 14:08-0400 Diastolic blood pressure 68 mm[Hg] Paz Lo PA Work Phone: [facility] 12-23-2023 14:08-0400 Systolic blood pressure 102 mm[Hg] Paz Lo PA Work Phone: [facility] 03-21-2023 11:34-0500 Body height 177.8 cm Leo Navarrete MD Work Phone: [facility] 03-21-2023 11:34-0500 Body mass index (BMI) [Ratio] 20.09 kg/m2 Leo Navarrete MD Work Phone: [facility] 03-21-2023 11:34-0500 Body temperature 98.4 [degF] Leo Navarrete MD Work Phone: [facility] 03-21-2023 11:34-0500 Body weight 63.5 kg Leo Navarrete MD Work Phone: [facility] 03-21-2023 11:34-0500 Diastolic blood pressure 75 mm[Hg] Leo Navarrete MD Work Phone: [facility] 03-21-2023 11:34-0500 Respiratory rate 20 /min Leo Navarrete MD Work Phone: [facility] 03-21-2023 11:34-0500 SaO2% (BldA) [Mass fraction] 95 % Leo Navarrete MD Work Phone: [facility] 03-21-2023 11:34-0500 Systolic blood pressure 121 mm[Hg] Leo Navarrete MD Work Phone: [facility] Encounters Encounter Date Encounter Type Care Provider Facility Start: 03-20-2025 ambulatory LEOPADMINI [facility] Start: 12-27-2024 End: 12-27-2024 Patient encounter procedure Paz BRANDON Work Phone: [facility] Start: 12-27-2024 End: 12-27-2024 Periodic preventive med est patient 40-64yrs Paz BRANDON Work Phone: [facility] Comment on above: Well woman exam with routine gynecological exam; Encounter for screening mammogram for malignant neoplasm of breast; Night sweat; Difficulty sleeping; Irregular periods/menstrual cycles; Other fatigue; Major depressive disorder with current active episode, unspecified depression episode severity, unspecified whether recurrent Start: 12-27-2024 ambulatory [facility]Z [facility] Start: 12-26-2024 End: 12-26-2024 ambulatory FIDELINA COSBY Not Available Start: 12-26-2024 End: 12-26-2024 Patient encounter procedure Fidelina Cosby MD Work Phone: [facility] Comment on above: Facial rhytids (Prim love Dx) Start: 09-27-2024 End: 09-27-2024 Emergency department patient visit LEO [facility] Comment on above: Laceration of left w rist, subsequent encounter (Primary Dx) Start: 08-24-2024 End: 08-24-2024 ambulatory FIDELINA COSBY Not Available Start: 08-24-2024 End: 08-24-2024 Patient encounter procedure Fidelina Cosby MD Work Phone: [facility] Comment on above: Facial rhytids (Prim love Dx) Start: 05-25-2024 End: 05-25-2024 Patient encounter procedure Fidelina Cosby MD Work Phone: [facility] Comment on above: Facial rhytids (Prim love Dx) Start: 05-25-2024 End: 05-25-2024 ambulatory FIDELINA COSBY Not Available Start: 02-04-2024 End: 02-04-2024 ambulatory FIDELINA COSBY Not Available Start: 02-04-2024 End: 02-04-2024 Patient encounter procedure Fidelina Cosby MD Work Phone: [facility] Comment on above: Facial rhytids (Prim love Dx) Start: 12-23-2023 End: 12-23-2023 Bamboo flowsheet Paz BRANDON Work Phone: [facility] Start: 12-23-2023 End: 12-30-2023 Bamboo flowsheet Paz BRANDON Work Phone: [facility] Start: 12-23-2023 End: 12-30-2023 Clinisync Result Encounter Paz BRANDON Work Phone: [facility] Unsolicited Start: 12-23-2023 End: 12-23-2023 Patient encounter procedure Paz BRANDON Work Phone: [facility] Start: 12-23-2023 End: 12-23-2023 Periodic preventive med est patient 40-64yrs Paz BRANDON Work Phone: [facility] Comment on above: Well woman exam with routine gynecological exam Start: 11-23-2023 End: 11-23-2023 Patient encounter procedure Fidelina Cosby MD Work Phone: [facility] Comment on above: Facial rhytids (Prim love Dx) Start: 03-21-2023 End: 03-21-2023 Emergency department patient visit Leo Navarrete MD Work Phone: [facility] Start: 11-02-2022 End: 11-04-2022 Subsequent hospital visit by physician [facility] [facility] Comment on above: Screening mammogram for high-risk patient Start: 10-24-2021 End: 10-26-2021 Subsequent hospital visit by physician [facility] Radiology Comment on above: Positive TB test Start: 10-23-2021 End: 10-23-2021 Subsequent hospital visit by physician Leo Navarrete MD Work Phone: [facility] Start: 08-29-2021 End: 08-31-2021 Subsequent hospital visit by physician [facility] Comment on above: Breast cancer screen ing by mammogram Start: 08-25-2021 End: 08-25-[address] YANG JIMENEZ Facility:H1 Start: 08-15-2021 End: 08-15-[address] YANG JIMENEZ Facility:H1 Start: 08-14-2021 Encounter for preprocedural laboratory examination DR YANG JIMENEZ [facility] Start: 08-12-2021 End: 08-13-[address] YANG JIMENEZ Facility:H1 Start: 08-12-2021 End: 08-13-2021 Encounter for preprocedural laboratory examination DR YANG JIMENEZ Facility:H1 Start: 08-06-2021 Encounter for other preprocedural examination DR YANG JIMENEZ [facility] Start: 08-01-2021 End: 08-02-[address] YANG JIMENEZ Facility:H1 Start: 08-01-2021 End: 08-02-2021 Encounter for other preprocedural examination DR YANG JIMENEZ Facility:H1 Start: 07-11-[address] YANG JIMENEZ Facility :H1 Start: 07-03-2021 End: 07-03-2021 Subsequent hospital visit by physician Leo Navarrete MD Work Phone: [facility] Start: 07-02-2021 End: 07-03-[address] YANG JIMENEZ Facility:H1 Start: 04-01-2021 End: 04-01-[address] LEO NAVARRETE Facility:H1 Start: 08-23-2020 End: 08-25-2020 Subsequent hospital visit by physician [facility] Comment on above: Encounter for screen ing mammogram for malignant neoplasm of breast Procedures Date Procedure Procedure Detail Performing Clinician Start: 12-23-2023 IGP,APTIMA HPV,AGE GDLN Paz Zelienople PA Work Phone: Start: 11-05-2023 Mammography Fidelina kumar MD Work Phone: Start: 03-21-2023 COVID-19, RAPID Naida Craig MD Work Phone: Start: 03-21-2023 Iaadiadoo influenza Rossana Craig MD Work Phone: Start: 11-02-2022 Screening mammograph y bi 2-view breast inc cad Leo Navarrete MD Work Phone: Start: 08-27-2022 Microscopic observat ion [Identifier] in Cervix by Cyto stain Fidelina Cosby MD Work Phone: Start: 10-24-2021 Radiologic exam ches t 2 views Loiscarolyn Ortiz CLAIM REVIEW MEDICAL DIRECTOR - ELECTROLYTIC DE SCALER Work Phone: Start: 10-23-2021 Hepatitis b surf ant ibody hbsab Leo Navarrete MD Work Phone: Start: 08-29-2021 Screening mammograph y bi 2-view breast inc cad Yang Jimenez MD Work Phone: Start: 07-03-2021 Assay of thyroid stimulating hormone tsh Yang Jimenez MD Work Phone: Start: 08-23-2020 Screening mammograph y bi 2-view breast inc cad Yang Jimenez MD Work Phone: Start: 12-23-2012 Microscopic observat ion [Identifier] in Cervix by Cyto stain Leo Navarrete MD Work Phone: Plan of Treatment Date Care Activity Detail Author Start: 06-25-2035 DTaP/Tdap/Td vaccine (2 - Td or Tdap) DTaP/Tdap/Td vaccine (2 - Td or Tdap) [facility] Start: 10-21-2027 Screening for malignant neoplasm of cervix [facility] Start: 01-01-2026 End: 01-01-2026 Patient encounter procedure 01/01/2026 9:00 AM EDT Procedure [facility] [address] [facility] [place] [place] [phone] Paz Lo PA [address] [place] [address] [facility] Start: 11-04-2025 Screening for malignant neoplasm of breast Breast cancer screen [facility] Start: 08-27-2025 Screening for malignant neoplasm of cervix Pap Smear [facility] Start: 12-28-2024 End: 12-28-2024 Patient encounter procedure 12/28/2024 2:00 PM EDT Office Visit [facility] [address] [place] [phone] Paz Lo, PA [address] [place] [address] [facility] Start: 12-27-2024 End: 02-26-2026 MG Breast - bilateral Screening Bilateral screening mammogram Imaging Routine Encounter for screening mammogram for malignant neoplasm of breast Expected: 12/27/2024 (Approximate), Expires: 02/26/2026 [facility] Work Phone: Comment on above: Expected: 12/27/2024 (Approximate), Expires: 02/26/2026 Start: 12-27-2024 End: 12-27-2024 Patient encounter procedure 12/27/2024 9:00 AM EDT Office Visit [facility] SCOTT [address] [facility] [place] [phone] Paz Lo, PA [address] [place], [place] [phone] [facility] Start: 11-04-2024 Screening for malignant neoplasm of breast Mammogram [facility] Start: 11-03-2024 Influenza vaccination Flu vacc ine (Season Ended) [facility] Start: 05-05-2024 End: 05-05-2024 Patient encounter procedure 05/05/2024 9:00 AM EST Procedure Visit [facility] [address] [place] [phone] Fidelina Cosby MD [address] [facility], [place] [phone] [facility] Start: 02-04-2024 End: 02-04-2024 Patient encounter procedure 02/04/2024 9:00 AM EDT Procedure Visit [facility] [address] [place] [phone] Fidelina Cosby MD [address] [facility] [place] [address] [facility] Start: 12-23-2023 End: 12-23-2023 Patient encounter procedure [facility] Comment on above: Arrived Start: 12-05-2023 COVID-19 Vaccine ( season) COVID-19 Vaccine ( season) [facility] Start: 12-05-2023 Influenza vaccination Influenza Vacc ine (#1) [facility] Start: 11-03-2022 Influenza vaccination Flu vaccine (# 1) [facility] Start: 01-11-2022 Lipid panel [facility] Start: 12-04-2021 Influenza vaccination B [facility] Start: 12-04-2020 Influenza vaccination M [facility] Start: 12-24-2015 Screening for malignant neoplasm of cervix [facility] Start: 2010 Screening for malignant neoplasm of cervix HPV (without or with Pap) [facility] Start: 1999 DTaP/Tdap/Td vaccine ( - Tdap) DTaP/Tdap/Td vaccine ( - Tdap) [facility] Start: 1999 Hepatitis B vaccine (1 of 3 - 19+ 3-dose series) Hepatitis B vaccine (1 of 3 - 19+ 3-dose series) [facility] Start: 1998 Hepatitis C screening Hepatitis C in sadiq [facility] Start: 1995 HIV screening HIV screen [facility] Start: 1993 Varicella vaccine (1 of 2 - 13+ 2-dose series) Varicella vaccine (1 of 2 - 13+ 2-dose series) [facility] Start: 1992 COVID-19 Vaccine (1) COVID-19 Vaccin e (1) [facility] [employer] Work Phone: Start: 1992 Depression Screen Depression Screen [facility] Start: 1985 COVID-19 Vaccine (1) COVID-19 Vaccin e (1) [facility] Start: 1981 Varicella vaccine (1 of 2 - 2-dose childhood series) Varicella vaccine (1 of 2 - 2-dose childhood series) [facility] Start: 1980 COVID-19 Vaccine (#1) COVID-19 Vacci ne (#1) [facility] Start: 1980 Hepatitis B vaccine (1 of 3 - 3-dose series) Hepatitis B vaccine (1 of 3 - 3-dose series) [facility] Start: 1980 Hepatitis C screening Hepatitis C [facility] End: 10-23-2021 Mumps Antibody, IgG [facility] [email or web address] Phone: Comment on above: Once for 1 Occurrenc es starting 10/23/2021 until 10/23/2021 End: 10-23-2021 Rubeola Antibody, IgG [facility] [email or web address] Phone: Comment on above: Once for 1 Occurrenc es starting 10/23/2021 until 10/23/2021 THIN PREP TIS PAP AN D HR HPV DNA THIN PREP TIS PAP AND HR HPV DNA Pathology and Cytology Routine Well woman exam with routine gynecological exam Ordered: 12/23/2023 [facility] [employer] Work Phone: Comment on above: Ordered: 12/23/2023 THIN PREP TIS PAP AN D HR HPV DNA THIN PREP TIS PAP AND HR HPV DNA Pathology and Cytology Routine Well woman exam with routine gynecological exam Ordered: 12/27/2024 [facility] Comment on above: Ordered: 12/27/2024 End: 10-23-2021 Varicella Zoster Antibody, IgG [facility] [employer] Work Phone: Comment on above: Once for 1 Occurrenc es starting 10/23/2021 until 10/23/2021 Immunizations Immunization Date Immunization Notes Care Provider Fa [facility] 09-27-2024 tetanus toxoid, redu jordan diphtheria toxoid, and acellular pertussis vaccine, adsorbed Leo Navarrete MD Work Phone: [facility] 03-21-2009 novel [id number], preservative-free, injectable Fidelina Cosby MD Work Phone: [facility] [employer] Payers Date Payer Category Payer Private Health Insurance ARNALDO HOLDER [id number] 2023 Unknown [facility]PO [facility] [id number] 2023-Present [phone] [place] [id number] 2023 Unknown [id number] 2022 Unknown [id number] [id number] 2014 Private Health Insurance MIRIAN BERMUDEZ [id number] 2014-Present [phone] [address] [place] [address] [id number] [id number] 1980 Unknown [id number] 2.16.840.1.202699.3.579. 2.593 1980 Unknown [id number] 2.16.840.1.909996.3.579. 2.593 1980 Unknown [id number] 2.16.840.1.656213.3.579. 2.593 1980 Unknown [id number] 2.16.840.1.240222.3.579. 2.593 1980 Unknown [id number] 2.16.840.1.760694.3.579. 2.593 1980 Unknown [id number] 2.16.840.1.895653.3.579. 2.593 1980 Unknown [id number] 2.16.840.1.409161.3.579. 2.593 1980 Unknown [id number] 2.16.840.1.085133.3.579. 2.173 1980 Unknown [id number] 2.16.840.1.226959.3.579. 2.173 1980 Unknown [id number] 2.16.840.1.761023.3.579. 2.1259 1980 Unknown [id number] 2.16.840.1.621486.3.579. 2.1259 1980 Unknown [id number] 2.16.840.1.673497.3.579. 2.1259 1980 Unknown [id number] 2.16.840.1.818093.3.579. 2.1259 1980 Unknown [id number] 2.16.840.1.126939.3.579. 2.1259 1959 Self-pay [id number] 1959 Unknown [id number]. [id number] Social History Date Type Detail Facility Start: 06-13-2012 End: 08-23-2020 Tobacco smoking status [facility] Never smoker [employer] Phone: Start: 08-23-2020 End: 09-27-2024 Alcohol intake Current drinker of alcohol (finding) [employer] Phone: Start: 06-13-2012 Alcohol Comment occas [employer] Phone: Start: 1980 Sex Assigned At Not on file [facility] [employer] Phone: Start: 11-02-2022 End: 11-22-2023 History of Social function [facility] Start: 11-02-2022 End: 11-22-2023 Tobacco use panel [facility] Start: 09-21-2022 End: 12-23-2023 Tobacco smoking status [facility] Ex-smoker [facility] History of tobacco use Current smoker [facility] History of tobacco use Cigarette Smoker [facility] Start: 09-21-2022 End: 12-23-2023 Tobacco use and exposure Smokeless tobacco non-user [facility] Start: 12-23-2023 End: 12-27-2024 Alcoholic beverage intake Ex-drinker (finding) [facility] How often do you nee d to have someone help you when you read instructions, pamphlets, or other written material from your doctor or pharmacy [SILS] Never [facility] Within the last year , have you been afraid of your partner or ex-partner? No [facility] Do you belong to any clubs or organizations such as muslim groups, unions, fraternal or athletic groups, or school groups? Yes [facility] Are you now , , , , never or living with a partner? [facility] How often to you hav e a drink containing alcohol? Never [facility] Do you feel stress - tense, restless, nervous, or anxious, or unable to sleep at night because your mind is troubled all the time - these days [OSQ] Only a little [facility] (I/We) worried wheth er (my/our) food would run out before (I/we) got money to buy more. Never true [facility] Start: 05-15-2012 Sex Female (finding) Romain marmolejo [facility] Functional Status Date Assessment Result Facility 12-27-2024 Patient Health Quest ionnaire 2 item (PHQ-2) [Reported] [facility] Clinical Notes 08-29-2020 to 12-27-2024 ALEKSANDR Padilla - 12/27/2024 9:00 AM Rudy Cosby MD - 12/26/2024 9:30 AM EDTDischarge InstructionsMariely Cosby MD - 08/24/2024 1:00 PM ALEKSANDR Salvador - 12/23/2023 2:00 PM EDT Note Date & Type Note Facility 12-27-2024 History of Present illness Narrative Reason for Appointment: Patient ID: Ac Mercer is a 44 y.o. female who presents for [facility] Women Visit Patient presents today for Annual Exam. MEDICATIONS Current Outpatient Medications Medication Instructions buPROPion XL (Wellbutrin XL) 300 MG 24 hr tablet Every 24 hours citalopram (CELEXA) 40 mg, Oral, Daily dexAMETHasone (Decadron) 6 MG tablet ALLERGIES No Known Allergies PROBLEMS Active Ambulatory Problems Diagnosis Date Noted Endometriosis 08/30/2012 Constipation 02/04/2024 Acne vulgaris 02/04/2024 Irregular menses 03/13/2024 Other insomnia 03/13/2024 Other fatigue 03/13/2024 Resolved Ambulatory Problems Diagnosis Date Noted No Resolved Ambulatory Problems Past Medical History: Diagnosis Date Bacterial vaginosis Fibrocystic breast Irregular intermenstrual bleeding Lump of breast, right Menorrhagia Ovarian cyst Skin mole HISTORY PAST MEDICAL HISTORY SOCIAL HISTORY Past Medical History: Diagnosis Date Bacterial vaginosis Endometriosis Fibrocystic breast Irregular intermenstrual bleeding Irregular menses May Lump of breast, right Menorrhagia Ovarian cyst Skin mole Social History Tobacco Use Smoking status: Former Current packs/day: 0.25 Average packs/day: 0.3 packs/day for 4.0 years (1.0 ttl pk-yrs) Types: Cigarettes Smokeless tobacco: Never Substance Use Topics Alcohol use: Not Currently Alcohol/week: 2.0 standard drinks of alcohol Drug use: Not Currently FAMILY HISTORY Family History Problem Relation Name Age of Onset Melanoma Neg Hx SURGICAL HISTORY Past Surgical History: Procedure Laterality Date SECTION, LOW TRANSVERSE ENDOMETRIAL ABLATION LAPAROSCOPY ABDOMEN DIAGNOSTIC PAP SMEAR 08/19/2020 WISDOM TOOTH EXTRACTION REVIEW OF SYSTEMS Review of Systems: Review of Systems Constitutional: Positive for fatigue and hot flashes. INSOMNIA AND MOOD CHANGES HENT: Negative. Eyes: Negative. Respiratory: Negative. Cardiovascular: Negative. Gastrointestinal: Negative. Genitourinary: Negative. Musculoskeletal: Negative. Skin: Negative. Neurological: Negative. All other systems reviewed and are negative. Hematological: Negative. Allergic/Immunologic: Negative. OBJECTIVE Objective: Physical Exam Constitutional: Appearance: Normal appearance. She is well-developed. Genitourinary: Vulva normal. Breasts: Breasts are soft. Right: Normal. Left: Normal. Cardiovascular: Rate and Rhythm: Normal rate and regular rhythm. Pulmonary: Effort: Pulmonary effort is normal. Breath sounds: Normal breath sounds. Abdominal: General: Bowel sounds are normal. There is no distension. Palpations: Abdomen is soft. Tenderness: There is no abdominal tenderness. There is no guarding or rebound. Musculoskeletal: General: No swelling. Normal range of motion. Right lower leg: No edema. Left lower leg: No edema. Neurological: Mental Status: She is alert and oriented to person, place, and time. Skin: General: Skin is warm and dry. Psychiatric: Mood and Affect: Mood normal. Behavior: Behavior normal. Vitals and nursing note reviewed. Exam conducted with a purchaser present. Vitals: Estimated body mass index is 22.24 kg/m as calculated from the following: Height as of 12/23/23: 5' 10 . Weight as of this encounter: 155 lb. BP: 108/84 No LMP recorded. Patient has had an ablation. ASSESSMENT & PLAN ICD-10-CM 1. Well woman exam with routine gynecological exam Z01.419 THIN PREP TIS PAP AND HR HPV DNA 2. Encounter for screening mammogram for malignant neoplasm of breast Z12.31 Bilateral screening mammogram Bilateral screening mammogram Annual Exam: Patient presents today for an annual exam. Patient states she is doing well and states she is experiencing perimenopausal symptoms including fatigue, night sweats, and difficulty sleeping. Pap was obtained without difficulty. Orders Placed This Encounter Procedures Bilateral screening mammogram We will start patient on Bijuva to help with symptoms patient will do a telehealth in 6-8 weeks. Follow Up: Patient is to return in one year for annual unless needed otherwise. Documented by Laura Le NP on behalf of: ALEKSANDR Padilla documented in this encounter [facility] 12-26-2024 History of Present illness Narrative Botox Procedure Note Diagnosis: rhytides Location: forehead and periocular Informed consent: Discussed risks (infection, pain, bleeding, bruising, swelling, allergic reaction, paralysis of nearby muscles, eyelid droop, double vision, neck weakness, difficulty breathing, headache, undesirable cosmetic result, need for additional treatment, and ) and benefits of the procedure, as well as the alternatives. Informed consent was obtained. Preparation: The area was cleansed with alcohol. Procedure Details: Botox was injected into the dermis with a 30-gauge needle. Pressure applied to any bleeding. Ice packs offered for swelling. Lot Number: [id number] Expiration: 08/2026 Total Units Injected: 26 2 units in 7 spots across forehead and 2 units in 3 spots around each eye Plan: She was instructed to remain upright for 6 hours. Tylenol may be used for headache. Allow 2 weeks before returning to clinic for additional dosing as needed. She will call for any problems. documented in this encounter [facility] 09-27-2024 Hospital Discharge instructions Raymundo Chandra II, PA-C - 09/27/2024 6:07 PM EDT This is an older wound and will have to granulate or scar over given time. Your biggest concern is to watch for signs of infection it does not appear to be acutely infected now but we will cover with antibiotics given its older nature. Keep the area clean and dry continue to do daily dressing changes follow-up with your doctor for a wound check as recommended. You will receive a survey in the next couple days regarding your experience in the ED. We are constantly striving to improve our care and welcome your feedback. Thank you very much for your time. The emergency department evaluation is not a complete evaluation, you're always required to followup with another doctor within the next few days to assess how your symptoms are progressing and to ensure that there is no indication for further testing or returning to the hospital. Even with treatment sometimes your condition worsens and you will need to return to the hospital. If you are having pain and it is getting worse you should return to the hospital. If you have any new symptoms that were not addressed at your original visit you should return to the hospital. If you're having difficulty breathing but it is getting worse you should return to the hospital. If you're vomiting and cannot take the medicines that were prescribed you should return to the hospital. If you're having persistent fevers you should return to the hospital. If you have any question of whether or not your symptoms are serious enough or for any other urgent concerns- always return to the hospital for repeat evaluation. The following attachments cannot be sent through Care Everywhere.Lacerations: Open (Hungarian)documented in this encounter [facility] 08-24-2024 History of Present illness Narrative Botox Procedure Note Diagnosis: rhytides Location: forehead and periocular Informed consent: Discussed risks (infection, pain, bleeding, bruising, swelling, allergic reaction, paralysis of nearby muscles, eyelid droop, double vision, neck weakness, difficulty breathing, headache, undesirable cosmetic result, need for additional treatment, and ) and benefits of the procedure, as well as the alternatives. Informed consent was obtained. Preparation: The area was cleansed with alcohol. Procedure Details: Botox was injected into the dermis with a 30-gauge needle. Pressure applied to any bleeding. Ice packs offered for swelling. Lot Number: [id number] Expiration: 06/29 Total Units Injected: 26 Plan: She was instructed to remain upright for 6 hours. Tylenol may be used for headache. Allow 2 weeks before returning to clinic for additional dosing as needed. She will call for any problems. documented in this encounter [facility] 05-25-2024 History of Present illness Narrative Botox Procedure Note Diagnosis: rhytides Location: forehead and periocular Informed consent: Discussed risks (infection, pain, bleeding, bruising, swelling, allergic reaction, paralysis of nearby muscles, eyelid droop, double vision, neck weakness, difficulty breathing, headache, undesirable cosmetic result, need for additional treatment, and ) and benefits of the procedure, as well as the alternatives. Informed consent was obtained. Preparation: The area was cleansed with alcohol. Procedure Details: Botox was injected into the dermis with a 30-gauge needle. Pressure applied to any bleeding. Ice packs offered for swelling. Lot Number: [id number] Expiration: 06/01 Total Units Injected: 26 Plan: She was instructed to remain upright for 6 hours. Tylenol may be used for headache. Allow 2 weeks before returning to clinic for additional dosing as needed. She will call for any problems. documented in this encounter [facility] 02-04-2024 History of Present illness Narrative Botox Procedure Note Diagnosis: rhytides Location: forehead and periocular Informed consent: Discussed risks (infection, pain, bleeding, bruising, swelling, allergic reaction, paralysis of nearby muscles, eyelid droop, double vision, neck weakness, difficulty breathing, headache, undesirable cosmetic result, need for additional treatment, and ) and benefits of the procedure, as well as the alternatives. Informed consent was obtained. Preparation: The area was cleansed with alcohol. Procedure Details: Botox was injected into the dermis with a 30-gauge needle. Pressure applied to any bleeding. Ice packs offered for swelling. Lot Number: [id number] Expiration: 12/29 Total Units Injected: 26 Plan: She was instructed to remain upright for 6 hours. Tylenol may be used for headache. Allow 2 weeks before returning to clinic for additional dosing as needed. She will call for any problems. documented in this encounter [facility] 12-23-2023 History of Present illness Narrative Reason for Appointment: Patient ID: Ac Mercer is a 43 y.o. female who presents for [facility] Women Visit Patient presents today for Annual Exam. MEDICATIONS Current Outpatient Medications Medication Instructions citalopram (CELEXA) 40 mg, Oral, Daily spironolactone (ALDACTONE) 100 mg, Oral, Daily, Take 1 tablet daily ALLERGIES No Known Allergies PROBLEMS Active Ambulatory Problems Diagnosis Date Noted No Active Ambulatory Problems Resolved Ambulatory Problems Diagnosis Date Noted No Resolved Ambulatory Problems Past Medical History: Diagnosis Date Bacterial vaginosis Endometriosis Fibrocystic breast Irregular intermenstrual bleeding Irregular menses May Lump of breast, right Menorrhagia Ovarian cyst Skin mole HISTORY PAST MEDICAL HISTORY SOCIAL HISTORY Past Medical History: Diagnosis Date Bacterial vaginosis Endometriosis Fibrocystic breast Irregular intermenstrual bleeding Irregular menses May Lump of breast, right Menorrhagia Ovarian cyst Skin mole Social History Tobacco Use Smoking status: Former Current packs/day: 0.25 Average packs/day: 0.3 packs/day for 4.0 years (1.0 ttl pk-yrs) Types: Cigarettes Smokeless tobacco: Never Substance Use Topics Alcohol use: Not Currently Alcohol/week: 2.0 standard drinks of alcohol Drug use: Not Currently FAMILY HISTORY Family History Problem Relation Name Age of Onset Melanoma Neg Hx SURGICAL HISTORY Past Surgical History: Procedure Laterality Date SECTION, LOW TRANSVERSE ENDOMETRIAL ABLATION LAPAROSCOPY ABDOMEN DIAGNOSTIC PAP SMEAR 08/19/2020 WISDOM TOOTH EXTRACTION REVIEW OF SYSTEMS Review of Systems: Review of Systems Constitutional: Negative. HENT: Negative. Eyes: Negative. Respiratory: Negative. Cardiovascular: Negative. Gastrointestinal: Negative. Genitourinary: Negative. Musculoskeletal: Negative. Skin: Negative. Neurological: Negative. All other systems reviewed and are negative. Hematological: Negative. Endocrine: Negative. Allergic/Immunologic: Negative. OBJECTIVE Objective: Physical Exam Constitutional: Appearance: Normal appearance. Genitourinary: Right Adnexa: not tender and no mass present. Left Adnexa: not tender and no mass present. No cervical discharge. Breasts: Breasts are soft. Right: Normal. Left: Normal. HENT: Head: Normocephalic. Nose: Nose normal. Mouth/Throat: Mouth: Mucous membranes are moist. Cardiovascular: Rate and Rhythm: Normal rate. Pulmonary: Effort: Pulmonary effort is normal. Abdominal: General: Bowel sounds are normal. Palpations: Abdomen is soft. Musculoskeletal: General: Normal range of motion. Cervical back: Normal range of motion. Neurological: General: No focal deficit present. Mental Status: She is alert. Skin: General: Skin is warm and dry. Psychiatric: Mood and Affect: Mood normal. Vitals and nursing note reviewed. Exam conducted with a purchaser present. Vitals: Estimated body mass index is 22.1 kg/m as calculated from the following: Height as of this encounter: 5' 10 . Weight as of this encounter: 154 lb. BP: 102/68 No LMP recorded. Patient has had an ablation. ASSESSMENT & PLAN ICD-10-CM 1. Well woman exam with routine gynecological exam Z01.419 THIN PREP TIS PAP AND HR HPV DNA Annual Exam: Patient presents today for an annual exam. Patient states she is doing well and has no complaints. Pap was obtained without difficulty. No orders of the defined types were placed in this encounter. Follow Up: Patient is to return in one year for annual unless needed otherwise. Documented by ALEKSANDR Padilla on behalf of: ALEKSANDR Padilla documented in this encounter [facility] 11-23-2023 History of Present illness Narrative Botox Procedure Note Diagnosis: rhytides Location: forehead and periocular Informed consent: Discussed risks (infection, pain, bleeding, bruising, swelling, allergic reaction, paralysis of nearby muscles, eyelid droop, double vision, neck weakness, difficulty breathing, headache, undesirable cosmetic result, need for additional treatment, and ) and benefits of the procedure, as well as the alternatives. Informed consent was obtained. Preparation: The area was cleansed with alcohol. Procedure Details: Botox was injected into the dermis with a 30-gauge needle. Pressure applied to any bleeding. Ice packs offered for swelling. Lot Number: [id number] Expiration: 09/08 Total Units Injected: 26 2 units in each of 7 spots across the forehead. 2 units in each of 3 spots around each eye. Plan: She was instructed to remain upright for 6 hours. Tylenol may be used for headache. Allow 2 weeks before returning to clinic for additional dosing as needed. She will call for any problems. documented in this encounter [facility] 08-15-2021 Note OPERATIVE NOTE OPERATION DATE: 08/15/2021 PROCEDURE: Kaylynn endometrial ablation. PREOPERATIVE DIAGNOSIS: Menorrhagia. POSTOPERATIVE DIAGNOSIS: Menorrhagia. ANESTHESIA: General. SURGEON: Yang Jimenez D.O. ECG TECHNICIAN: None. SPECIMEN: None. FINDINGS: Both ostia seen. No gross evidence of polyps, fibroids, malignancy. PROCEDURE: The patient was taken back to the OR where she was prepped and draped in the normal sterile fashion after being placed in the dorsal lithotomy position, after being placed under general anesthesia without difficulty. A weighted speculum was placed into the vagina. The anterior lip was grasped with a single tooth tenaculum. The patient was then sounded to approximated 8 cm. The patient's cervix was gently dilated using Hegar dilators. The hysteroscope was passed through the cervix into the uterus where both ostia were seen. No gross evidence of polyps, fibroids or malignancy. The cervical length was noted to be 4 cm. The total cavity length is 4 cm. The Kaylynn ablation apparatus was set to approximately 4 cm in length. This was placed through the cervix and into the uterus. After the seal was tested, at that time the total ablation of 120 seconds was performed with the Kaylynn without difficulty. All instruments were removed from the vagina. Excellent hemostasis noted. Sponge and lap count correct times 2. Patient taken to recovery in stable condition. [facility] Signed and Approved by: DR YANG JIMENEZ . 08/19/2021 09:43:00 [facility] 08-29-2020 Note HNO ID: [id number] Author: Tito Elias MD Service: ? Author Type: Physician Type: Progress Notes Filed: 08/29/2020 2:34 PM Note Text: SUBJECTIVE: Ac Mercer is a 40 year old female Patient presents with: Vaginal Problem Pt is here for 2nd opinion She gest frequent BV Gets odor after intercourse. She tried all Rx for BV. CURRENT MEDICATIONS: Current Outpatient Medications Medication Sig - azithromycin (ZITHROMAX) 250 mg tablet - spironolactone (ALDACTONE) 50 mg tablet - nystatin-triamcinolone ointment Apply 1 application to affected area twice daily. - PARoxetine (PAXIL) 10 mg tablet Take 10 mg by mouth once daily. - multivitamin tablet Take 1 tablet by mouth once daily. - CALCIUM CARBONATE (CALCIUM 500 ORAL) Take 600 mg by mouth once daily. - zinc once daily. - ERGOCALCIFEROL, VITAMIN D2, (VITAMIN D ORAL) Take by mouth once daily. No current facility-administered medications for this visit. Reviewed: PAST SURGICAL HISTORY Procedure Laterality Date - DEL W/ ANTE/POST CARE 2005 Breech - LAPAROSCOPY DIAGNOSTIC 08/07/2010 left endometrioma drained - L hydrosalpinx seen PAST MEDICAL HISTORY Diagnosis Date - Anxiety - Endometriosis Diagnosed in 2010 during laparoscopy - Left ovarian cyst Social History Tobacco Use - Smoking status: Former Smoker Types: Cigarettes - Smokeless tobacco: Never Used - Tobacco comment: Has not had a cig in 2 mo Substance Use Topics - Alcohol use: Yes Comment: Social occasions - Drug use: No Patient has no known allergies. REVIEW OF SYSTEMS:GENERAL: No weight loss, malaise or fevers HEENT: Negative for frequent or significant headaches, No changes in hearing or vision, no nose bleeds or other nasal problems NECK: Negative for lumps, goiter, pain and significant neck swelling RESPIRATORY: Negative for cough, hemoptysis, wheezing, COPD, dyspnea or shortness of breath CARDIOVASCULAR: Negative for chest pain, leg swelling, hypertension, CHF or palpitations GI: No nausea, vomiting, or diarrhea PHYSICAL EXAMINATION: BP 121/86 Pulse 81 Ht 5' 9 (1.75m) Wt 140 lb (63.5kg) LMP 08/08/2020 BMI 20.67 kg/(m2). GENERAL APPEARANCE: pleasant, well developed, well nourished, white female in no apparent distress NECK: Full range of motion, no adenopathy, thyroid normal, no goiter and lymphnodes normal, no lymphadenopathy ABDOMEN: Soft, non-tender, no hernia and No organmegaly PELVIC: vulva/vagina no lesions or discharge, cervix no lesions, discharge, or motion tenderness, uterus is anteverted, adnexa no palpable masses ASSESSMENT/PLAN: 1. Vaginal odor - ICD9: 625.8, ICD10: N89.8 Counseled in length Explained normal miracle Offered her to try condoms for a while or see [employer] ID She wants to think about it and let me know. 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 tuberculin skin test without active tuberculosis documented in this encounter [employer] Phone: evalazhqez note* Diagnosis Screening mammogram for high-risk patient documented in this encounter [employer] [facility]* Diagnosis Facial rhytids- Primary [facility] Diagnosis Facial rhytids- Primary [facility] Diagnosis Well woman exam with routine gynecological exam Routine gynecological examination [facility] Diagnosis Facial rhytids- Primary [facility]* Diagnosis Laceration of left wrist, subsequent encounter- Primary documented in this encounter [employer] note* Diagnosis Well woman exam with routine gynecological exam Routine gynecological examination Encounter for screening mammogram for malignant neoplasm of breast Night sweat Generalized hyperhidrosis Difficulty sleeping Unspecified sleep disturbance Irregular periods/menstrual cycles Other fatigue Major depressive disorder with current active episode, unspecified depression episode severity, unspecified whether recurrent documented in this encounter [facility] Advance Directives Documents on File Type Date 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 [address] Referral ID Status Reason Start Date Expiration Date Visits Re quested Visits Authorized [id number] Closed 08/28/2021 08/28/2022 1 1 Specialty Diagnoses / Procedures Referred By Contac t Referred To Contact Radiology Diagnoses Screening mammogram for high-risk patient Procedures ESPERANZA JUAN M DIGITAL SCREEN SELF REFERRAL W OR WO CAD BILATERAL Leo Navarrete MD [address] [phone] Referral ID Status Reason Start Date Expiration Date V isits Requested Visits Authorized [id number] Pending Review 07/31/2022 07/31/2023 1 1 Additional Source Comments Reason for Visit (unrecogniz ed section and content) Status Reason Specialty Diagnoses / Procedures Referre d By Contact Referred To Contact Closed Radiology Diagnoses Encounter for screening mammogram for malignant neoplasm of breast Procedures ESPERANZA JUAN M DIGITAL SCREEN BILATERAL ESPERANZA DIGITAL SCREEN W OR WO CAD BILATERAL Yang Jimenez MD [address] [place] [address] Specialty Diagnoses / Procedures [facility] Referred To Contact Radiology Diagnoses Breast cancer screening by mammogram Procedures ESPERANZA JUAN M DIGITAL SCREEN BILATERAL Yang Jimenez MD [address] [place] [address] Referral ID Status Reason Start Date Expiration Date Visits Re quested Visits Authorized [id number] Closed 08/28/2021 08/28/2022 1 1 Specialty Diagnoses / Procedures Referred By Contac t Referred To Contact Radiology Diagnoses Screening mammogram for high-risk patient Procedures ESPERANZA JUAN M DIGITAL SCREEN SELF REFERRAL W OR WO CAD BILATERAL Leo Navarrete MD [address] [phone] Referral ID Status Reason Start Date Expiration Date V isits Requested Visits Authorized [id number] Pending Review 07/31/2022 07/31/2023 1 1 Reason Comments Illness Cough, runny nose, f ever and chest congestion beginning 03/17/23. Reason Comments Well Women Visit Reason Comments Laceration Laceration on the le ft forearm, occurred a week ago. INFORMATION SOURCE (unrecogn ized section and content) DATE CREATED AUTHOR 05/06/2021 [facility] DATE CREATED AUTHOR AUTHOR'S ORGANIZ ATION 08/29/2021 [facility] DATE CREATED AUTHOR AUTHOR'S ORGANIZ ATION 12/16/2024 [facility] DATE CREATED AUTHOR AUTHOR'S ORGANIZ ATION 12/27/2024 [facility] EPIC Care Teams (unrecognized sec tion and content) Television News Producer Relationship Specialty Start Date End Date Leo Navarrete MD [address] [phone] PCP - General 09/18/12 [employer] Pro[employer] Relationship Specialty Start Date End Date Leo Navarrete MD [address] [phone] PCP - General 09/18/12 Television News Producer Relationship Specialty Start Date End Date Leo Navarrete MD [address] [phone] PCP - General 09/18/12 Television News Producer Relationship Specialty Start Date End Date Leo Navarrete MD [address] [place] [address] PCP - General 09/18/12 Television News Producer Relationship Specialty Start Date End Date Leo Navarrete MD [address] [place] [address] PCP - General 09/18/12 Television News Producer Relationship Specialty Start Date End Date Leo Navarrete MD [address] [place] [address] PCP - General 09/18/12 Television News Producer Relationship Specialty Start Date End Date Leo Navarrete MD [address] [place] [address] PCP - General 09/18/12 Television News Producer Relationship Specialty Start Date End Date Leo Navarrete MD [address] [place] [facility] [place] [address] PCP - General Family Medicine 11/23/23 Television News Producer Relationship Specialty Start Date End Date Leo Navarrete MD [address] [facility] [place] [address] PCP - General Family Medicine 11/23/23 Television News Producer Relationship Specialty Start Date End Date Leo Navarrete MD [address] [facility] [place] [address] PCP - General Family Medicine 11/23/23 Television News Producer Relationship Specialty Start Date End Date Leo Navarrete MD [address] [facility] [place] [address] PCP - General Family Medicine 11/23/23 Television News Producer Relationship Specialty Start Date End Date Leo Navarrete MD [address] [facility] [place] [address] PCP - General Family Medicine 11/23/23 Television News Producer Relationship Specialty Start Date End Date Leo Navarrete MD [address] [facility] [place] [address] PCP - General Family Medicine 11/23/23 Television News Producer Relationship Specialty Start Date End Date Leo aNvarrete MD PCP - General Family Medicine 11/23/23 Television News Producer Relationship Specialty Start Date End Date Leo Navarrete MD [address] [place] [facility] [address] PCP - General 09/18/12 Television News Producer Relationship Specialty Start Date End Date Leo Navarrete MD [address] [place] [phone] PCP - General Family Medicine 11/23/23 Ordered Prescriptions (unrec ognized section and content) Prescription Sig Dispense Quantity Refills Last Filled Start Date End Date cephALEXin (KEFLEX) 500 MG capsule Take 1 capsule by mouth 3 times daily for 10 days 30 capsule 09/27/2024 Scheduled Active and Recently Administ ered Medications (unrecognized section and content) Medication Order 09/25/2024 09/26/2024 09/27/2024 eozfpyje-dhpmudgfto-qivqkrjwe (NEOSPORIN) ointment (COMPLETED) Topical, ONCE, On Wed09/27/24 at 1815, For 1 dose 1815 (Given - Provid er: Lizette Rivas RN) FOR RECORDS PERTAINING TO PATIENTS WHO ARE OR HAVE BEEN ENROLLED IN A CHEMICAL DEPENDENCY/SUBSTANCEABUSE PROGRAM, SOME INFORMATION MAY BE OMITTED. This clinical summary was aggregated from multiple sources. Caution should be exercised in using it in the provision of clinical care. This summary normalizes information from multiple sources, and as a consequence, information in this document may materially change the coding, format and clinical context of patient data. In addition, data may be omitted in some cases. CLINICAL DECISIONS SHOULD BE BASED ON THE PRIMARY CLINICAL RECORDS. [employer] [facility]. provides no warranty or guarantee of the accuracy or completeness of information in this document.
[2025-01-02 17:08] LABS: Age Gdln ACOG Testing Note (.); IGP, Aptima HPV, rfx 16/18,45 Note (.)
== END 2024-12-27 15:15 | disposition home or self-care (01) ==
LOC: LAB 15:14
PROVIDERS: PCP Physician Assistant; Visit Provider Physician Assistant
DX: Z01.419 Encounter for gynecological examination (general) (routine) without abnormal findings (principal)
CPT/HCPCS: 87624; 88175